=== PATIENT | male | born 1945 | race Caucasian/White ===

== ENCOUNTER 2022-10-20 12:57 | Emergency (ER) | payer OTHER ==
[~2022-10-20] VITALS: Ht 175.3 cm; Wt 96.0 kg
[2022-10-20 13:05] VITALS: BP 159/65
--- NOTE | 2022-10-20 13:43 | ED General ---
General Chief Complaint: General Problems/Pain Stated Complaint: RX REFILL (LACTULOSE) Nursing Triage Note: Patient reports he is here visiting from [place] and is unable to fill his lactulose prescription from the [place]. [facility] so he could get it filled. [facility] the [facility] for his prescription refill. Source of Information: Patient, Spouse History of Present Illness Date Seen by Provider: Oct 20, 2022 Time Seen by Provider: 13:43 Initial Comments 77-year-old male presenting with his spouse to the emergency department. He states that [facility] [place] and is here visiting. He ran out of his lactulose and has to take it for liver failure to prevent ammonia building up. He only had 1 bowel movement today and did not have any yesterday. He is out of the lactulose and states that [facility] [place]. He had been advised to go to the ER and get a prescription refill. He was having some mild confusion at times. He denies having any fall or injury, fever, chills, abdominal pain, nausea, vomiting, pain with urination. Associated Systoms: No Chest Pain, No Cough, No Diaphoresis, No Fever/Chills, No Headaches, No Loss of Appetite, No Malaise, No Nausea/Vomiting, No Rash, No Seizure, No Shortness of Air, No Syncope, No Weakness Allergies and Home Medications Allergies Coded Allergies: No Known Drug Allergies (Unverified , 10/20/22) Patient Home Medication List Home Medication List Reviewed: Yes Lactulose (Lactulose) 10 Gram/15 Ml Solution, 30 ML PO BID Prescribed by: JEFF ATKINSON on 10/20/22 1350 Review of Systems Review of Systems Constitutional: no symptoms reported EENTM: no symptoms reported Respiratory: no symptoms reported Cardiovascular: no symptoms reported Gastrointestinal: see HPI Genitourinary: no symptoms reported Musculoskeletal: no symptoms reported Skin: no symptoms reported Psychiatric/Neurological: See HPI Past [id number] Hx Past Medical History Surgery/Hospitalization HX: Chronic liver failure Physical Exam Vital Signs Vital Signs - First Documented 10/20/22 13:05 Temp 36.0 Pulse 83 Resp 16 B/P (MAP) 159/65 (96) Pulse Ox 98 O2 Delivery Room Air Capillary Refill : Less Than 3 Seconds Height, Weight, BMI Height: '" Weight: lbs. oz. kg; 31.00 BMI Method: General Appearance: No Apparent Distress, WD/WN HEENT: PERRL/EOMI, Pharynx Normal Respiratory: Chest Non Tender, Lungs Clear, Normal Breath Sounds Cardiovascular: Regular Rate, Rhythm, Normal Peripheral Pulses Gastrointestinal: Normal Bowel Sounds, No Pulsatile Mass, Non Tender, Soft Neurologic/Psychiatric: Alert, Oriented x3 Skin: Normal Color, Warm/Dry Progress/Results/Core Measures Suspected Sepsis SIRS Temperature: Pulse: 83 Respiratory Rate: 16 Blood Pressure 159 /65 Mean: 96 Results/Orders Vital Signs/I&O 10/20/22 13:05 Temp 36.0 Pulse 83 Resp 16 B/P (MAP) 159/65 (96) Pulse Ox 98 O2 Delivery Room Air Capillary Refill : Less Than 3 Seconds Blood Pressure Mean: 96 Progress Note : Progress Note Will refill his lactulose based off of the directions from his current bottle. Family requested to be sent to [facility]. Encouraged to take the medicine and titrate to get to 2-3 bowel movements a day. Departure Impression Primary Impression: Medication refill Additional Impression: Chronic liver failure without hepatic coma Disposition: HOME, SELF-CARE Condition: Stable Departure-Patient Inst. Decision time for Depature: 13:48 Referrals: NO,LOCAL PHYSICIAN (PCP/Family) Primary Care Physician Patient Instructions: Lactulose, Liver Failure Diet Add. Discharge Instructions: Refill Lactulose at [facility]. Take as directed to get 2-3 bowel movements a day to help keep Ammonia level from getting too high. All discharge instructions reviewed with patient and/or family. Voiced under standing. Scripts Lactulose (Lactulose) 10 Gram/15 Ml Solution 30 ML PO BID for Liver Failure for 30 Days, #473 ML 0 Refills Titrate for 2-3 bowel movements a day. Prov: JEFF ATKINSON MD 10/20/22 JEFF ATKINSON MD Oct 20, 2022 13:43
[2022-10-20] MEDS ORDERED: LACT10SO3 PO (13:50)
== END 2022-10-20 13:59 | disposition home or self-care (01) ==
LOC: ER FS 12:59
DX: Z76.0 Encounter for issue of repeat prescription (principal); K72.10 Chronic hepatic failure without coma; Z28.310 Unvaccinated for COVID-19
CPT/HCPCS: 99281